=== PATIENT | male | born 1985 | race Caucasian/White ===

== ENCOUNTER → 2018-08-31 | Outpatient (CLI) | payer OTHER ==
--- NOTE | 2018-08-31 17:38 | RADIOLOGY IMAGING REPORT ---
FACILITY: [facility] PATIENT NAME: Wily Landaverde : 1985 MR: [id number] V: [id number] EXAM DATE: ORDERING PHYSICIAN: [employer] TECHNOLOGIST: Location: [facility] [place] Patient: Wily Landaverde : 1985 Visit/Account:[id number] Date of Sevice: 08/31/2018 ELBOW 3 VIEW LEFT Indication: Pain Comparison: None Available Findings: No evidence of fracture, dislocation, or acute osseous abnormality left elbow. On the lateral view, calcifications are seen involving the anterior bursa. No significant joint effu jayme is identified. There is no focal soft tissue abnormality. No evidence of radiopaque foreign body. IMPRESSION: 1. Faint calcifications involve the bursa anteriorly, no other abnormality noted Report Dictated By: Kranthi Iniguez at 08/31/2018 5:28 PM Report E-Signed By: Kranthi Iniguez at 08/31/2018 5:30 PM WSN:[id number]
== END ==
LOC: RAD 16:04
PROVIDERS: ATTEND Chiropractor
DX: M25.822 Other specified joint disorders, left elbow (principal)